=== PATIENT | female | born 1940 | race Caucasian/White ===

== ENCOUNTER → 2019-11-19 11:02 | Outpatient (BNVA) | payer MEDICARE, BC, SELFPAY | PROVIDERS: Family Provider Family Medicine; PCP Family Medicine; Visit Provider Family Medicine | DX: E86.0 Dehydration (principal); R10.32 Left lower quadrant pain | CPT/HCPCS: 81003 ==

== ENCOUNTER 2021-08-25 15:32 | Outpatient (CLI) | payer MEDICARE, SELFPAY ==
--- NOTE | 2021-08-25 15:43 | USCV_ITS ---
Tanja Victor Age: 81 Gender: F : 1940 Exam Date: 08/25/2021 15:47 Ordering Phys: Tre Wilkinson Technologist: Jackie Ricardo Exam Location: [facility] [place]ication: Worsening athroembolism Risk Factors: Previous Vascular Surgery: RIGHT LEFT BP: 134.0 / 65.00 BP: 128.0/ 74.00 0 0 Waveform Velocity (cm/s) Velocity (cm/s) Waveform Triphasic 96.0 Iliac Prox 77.8 Triphasic Triphasic 111.4 Iliac Mid 90.7 Triphasic Triphasic 108.5 Iliac Distal 75.4 Triphasic Triphasic 136.7 ASSEMBLER PIANO 61.1 Triphasic Triphasic 107.8 SFA Prox 105.8 Triphasic Triphasic 78.6 SFA Mid 90.4 Biphasic Triphasic SFA Dist Biphasic 83.8 108.1 Biphasic 55.2 POP 57.8 Biphasic Biphasic 63.3 COMMUNICATION ELECTRONIC TECHNICIAN 33.8 Biphasic Monophasic 19.8 DPA 15.5 Monophasic FINDINGS pain Normal Doppler velocities bilaterally. Abnormal Doppler waveforms in the infrapopliteal vessels bilaterally ABIs could not be obtained, due to patient's complaint of pain Mild to moderate scattered plaques in the iliac and femoral arteries bilaterally CONCLUSIONS Patent lower extremity arteries bilaterally. Possible mild to moderate disease in the infrapopliteal vessels bilaterally No ABIs were obtained Dr Jn Mayfield MD [facility] (Electronically Signed) Final Date: 26 August 2021 19:34 S
== END 2021-08-25 15:33 | disposition home or self-care (01) ==
LOC: RAD 15:37
PROVIDERS: PCP Nurse Practitioner; Visit Provider Nurse Practitioner
DX: I75.023 Atheroembolism of bilateral lower extremities (principal)
CPT/HCPCS: 93925

== ENCOUNTER 2021-10-17 14:39 | Outpatient (CLI) | payer MEDICARE, SELFPAY ==
--- NOTE | 2021-10-17 14:49 | USCV_ITS ---
Tanja Victor Age: 81 Gender: F : 1940 Exam Date: 10/17/2021 14:50 Ordering Phys: Tre Wilkinson Technologist: Joe Campbell RVSandy [place] [facility] [place]ication: WEAKNESS RIGHT LEFT Brachial 160.00 mmHg Brachial 155.00 mmHg Pressure (mmHg) Waveform Pressure (mmHg) Waveform 159.00 SPOOL CARRIER 153.00 147.00 DPA 172.00 0.99 Ankle/Brachial Index 1.08 80.00 Pre-Exercise Toe Pressure 66.00 0.50 Pre-Exercise Toe/Brachial Index 0.41 FINDINGS The resting DAYNA was 0.99 on the right side and 1.08 on the left side Resting TBI of 0.5 on the right and 0.4 on the left. CONCLUSIONS Normal resting ABIs with slightly diminished resting TBIs bilaterally, suggesting mild peripheral artery disease possibly involving the distal vessels bilaterally Dr Jn Mayfield MD [facility] (Electronically Signed) Final Date: 18 October 2021 12:58 S
== END 2021-10-17 14:40 | disposition home or self-care (01) ==
LOC: RAD 14:44
PROVIDERS: PCP Nurse Practitioner; Visit Provider Nurse Practitioner
DX: I99.8 Other disorder of circulatory system (principal)
CPT/HCPCS: 93922

== ENCOUNTER → 2022-03-13 11:55 | Outpatient (BNVA) | payer MEDICARE, SELFPAY | PROVIDERS: PCP Nurse Practitioner; Visit Provider Podiatrist Foot & Ankle Surgery | DX: M79.671 Pain in right foot (principal); M79.672 Pain in left foot; I73.9 Peripheral vascular disease, unspecified; M20.41 Other hammer toe(s) (acquired), right foot; M20.42 Other hammer toe(s) (acquired), left foot; L60.3 Nail dystrophy | CPT/HCPCS: 11721 ==

== ENCOUNTER → 2022-07-17 10:59 | Outpatient (BNVA) | payer MEDICARE, SELFPAY | PROVIDERS: PCP Nurse Practitioner; Visit Provider Podiatrist Foot & Ankle Surgery | DX: I73.9 Peripheral vascular disease, unspecified (principal); M20.41 Other hammer toe(s) (acquired), right foot; M20.42 Other hammer toe(s) (acquired), left foot; L60.3 Nail dystrophy | CPT/HCPCS: 11721 ==

== ENCOUNTER → 2023-01-02 13:18 | Outpatient (BNVA) | payer MEDICARE, SELFPAY | PROVIDERS: PCP Nurse Practitioner; Visit Provider Internal Medicine | DX: L81.9 Disorder of pigmentation, unspecified (principal); I10 Essential (primary) hypertension; R26.89 Other abnormalities of gait and mobility; Z87.891 Personal history of nicotine dependence | CPT/HCPCS: 99213 ==